=== PATIENT | female | born 1990 | race Caucasian/White ===

== ENCOUNTER → 2017-04-22 | Outpatient (CLI) | payer BC | END | disposition home or self-care (01) | LOC: C.PAPS 10:25 | PROVIDERS: ATTEND Obstetrics & Gynecology | DX: Z01.419 Encounter for gynecological examination (general) (routine) without abnormal findings (principal) ==

== ENCOUNTER → 2018-01-21 | Outpatient (CLI) | payer BC | END | disposition home or self-care (01) | LOC: C.LAB1850 12:21 | PROVIDERS: ATTEND Obstetrics & Gynecology | DX: O20.0 Threatened abortion (principal) ==

== ENCOUNTER → 2018-01-23 | Outpatient (CLI) | payer BC | END | disposition home or self-care (01) | LOC: C.LAB1850 11:40 | PROVIDERS: ATTEND Obstetrics & Gynecology | DX: O02.1 Missed abortion (principal) ==

== ENCOUNTER → 2018-01-29 | Outpatient (CLI) | payer BC | END | disposition home or self-care (01) | LOC: C.LAB1850 09:15 | PROVIDERS: ATTEND Obstetrics & Gynecology | DX: O03.9 Complete or unspecified spontaneous abortion without complication (principal) ==

== ENCOUNTER 2019-08-06 06:16 | Inpatient (IN) ==
[2019-08-06] MEDS ORDERED: OXYTOCIN 30 UNITS/500 ML BAG IV PRN ×2 (07:05→07:07)
[2019-08-06 07:29] LABS: Hematocrit (blood only) 33.8 % (37-47); Hemoglobin 11.5 g/dL (12.0-16.0); Mean Corpuscular Hemoglobin 31.3 pg (25-34); Mean Corpuscular Volume 92.1 fL (80-100); Mean Platelet Volume 10.1 fL (7.4-10.4); Platelet Count 210 K/uL (130-400); RDW Coefficient of Variation 13.7 % (11.5-14.5); RDW Standard Deviation 45.5 fL (36.4-46.3); Red Blood Count 3.67 M/uL (4.2-5.4); White Blood Count 9.19 K/uL (4.8-10.8)
--- NOTE | 2019-08-06 08:06 | History & Physical Report ---
Date of Service August 06, 2019 Assessment & Plan (1) Normal labor: IUP at 37 weeks with SPROM and no labor yet will ambulate for now but may need pitocin augmentation anticipate vaginal will notify peds of renal pelvis dilation in the but is now resolved. History of Present Illness Primary Care Provider: Tali Grande PA-C patient is a 29 yo white female EDC 08/27/19 who presents with SPROM of clear fluid at 0500 today. no contractions so far. GBS negative. was complicated by dilation of both renal pelvices which has resolved on the 36 week ultrasound. Allergies Allergy/AdvReac Type Severity Reaction Status Date / Time No Known Drug Allergies Allergy Verified 08/01/19 12:08 Home Medications Home Medications Medication Instructions Recorded Confirmed Type ferrous gluconate 240 mg (27 mg 240 mg PO DAILY tab 03/04/19 08/06/19 History iron) tablet vitamins with calcium 1 tab PO DAILY 03/04/19 08/06/19 History no.72-iron 29 mg-folic acid 1 mg tablet Patient History Social History (Updated 03/04/19 @ 14:55 by Nidia Henderson) Preferred Language: Kinyarwanda Communication Ability: Effective Visual Impairment: Partially Limited Hearing Ability: Normal Beliefs That Will Affect Care: None marital status: marital status details: Shen Huynh (28) [phone] Current Living Situation: Spouse Current Living Situation Comment: 2 cats- spouse changing cat litter. 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[place] [employer] Other Information That Helps Us Care for You: No Feels Safe at Home: Yes Safety Concerns: Feels Safe At This Time Smoking Status: Never smoker Hx Alcohol Use: No Hx Substance Use: No Childhood Exposure to Second-Hand Smoke: No Dental Care, Regularly: Yes Physical Activity Frequency: 3-4 Times per Week Physical Activity Frequency Comment: BEFORE Seatbelt Use: always Sunscreen Use: Yes Review of Systems All systems reviewed & are unremarkable except as noted in HPI & below Physical Exam Constitutional: WD/WN, vitals as above Respiratory: normal respiratory effort, lungs clear to auscultation Cardiovascular: RRR, no murmur, no edema Gastrointestinal (Abdomen): normal bowel sounds, soft, nontender, no hepatosplenomegaly Psychiatric: A+Ox3, euthymic affect Genitourinary: Manual OB Exam: + cervical dilation 1 cm, + cervical effacement 50%, + station -2 and + amniotic fluid clear OB Exam Monitor Tracing: + external FHT monitor used, + external uterine monitor used, + category I and + normal FHT variability Results & Data Vital Signs (Past 12 Hours) Vital Signs Temp Pulse Resp BP 08/06/19 06:58 99.0 F 96 H 18 125/82 08/06/19 06:35 112 H 135/68 08/06/19 06:28 98.8 F 18 Coding Level of Care Code None Diagnoses Normal labor O80; Z37.9
[2019-08-06] MEDS: LACTATED RINGER'S 1,000 ML IV PRN ×3 (11:09→20:40)
--- NOTE | 2019-08-06 14:57 | Anesthesiology Consultation ---
Date of Service August 06, 2019 Assessment & Plan (1) Encounter for pre-operative examination: Chart Review Chart Review: Patient NOT seen in Pre Admission Testing and Acceptable Risk for Labor Epidural Consults Requested none ASA ASA2 Proposed Anesthesia Anesthesia Type: Labor Epidural Risk / Benefits Reviewed With: PT / POA / Parent / Guardian, Accepts Plan and Informed Consent Obtained Additional Notes Consent obtained - patient will call when ready for epidural. History Height/Weight Height: 5 ft 3 in Weight: 70.307 kg Allergies Allergy/AdvReac Type Severity Reaction Status Date / Time No Known Drug Allergies Allergy Verified 08/01/19 12:08 Medications Home Medications Medication Instructions Recorded Confirmed Last Taken ferrous gluconate 240 mg (27 mg 240 mg PO DAILY tab 03/04/19 08/06/19 08/05/19 12:00 iron) tablet vitamins with calcium 1 tab PO DAILY 03/04/19 08/06/19 08/05/19 12:00 no.72-iron 29 mg-folic acid 1 mg tablet Active Medications Generic Name Dose Route Start Last Admin Trade Name Pramodq PRN Reason Stop Dose Admin Lactated Ringer's 1,000 mls @ 125 mls/hr 08/06/19 07:05 08/06/19 14:53 Lr IV 08/08/19 07:04 125 mls/hr .Q8H PRN Infusion L&D Protocol Protocol Oxytocin 30 units in 500 mls @ 14 mls/hr 08/06/19 07:07 08/06/19 14:53 Pitocin IV 08/08/19 07:06 0.84 units/hr .Q24H PRN 14 mls/hr Labor Induction/Augmentation Titration Protocol 0.84 UNITS/HR NPO Date Last Intake of Fluids: 08/06/19 Time Last Intake of Fluids: 14:54 Date Last Intake of Solids: 08/05/19 Time Last Intake of Solids: 18:15 Past Medical History Medical History History of miscarriage Varicella vaccine Exercise / Class Metabolic Activity II 4-5 Yardwork/Stairs/Walk up hill Negative for chest pain or shortness of breath. Patient denies active symptoms of GERD. Past Family History Family History Father Hypertension Hypercholesterolemia Aunt Breast cancer Unknown Delivery outcome of twins Past Surgical History Surgical History S/P wisdom tooth extraction Past Anesthesia History No Hx of Anesthesia Complications History of PONV No Hx of PONV Social History Smoking Status: Never smoker Hx Alcohol Use: No Hx Substance Use: No Review of Systems Patient denies history of abnormal bleeding or bleeding disorder. Patient denies active use of anticoagulants other than low dose aspirin. Patient denies numbness, tingling or weakness in lower extremities. Physical Exam Vital Signs Last Vital Signs Temp 37.3 C 08/06/19 14:26 Pulse 97 H 08/06/19 14:50 Resp 18 08/06/19 14:26 BP 124/82 08/06/19 14:50 Constitutional not obese (Gravid uterus) ENMT Mouth: no TMJ abnormality and oral opening not small Thyromental Distance: > or= 3.5 Finger Breadths Mallampati Class: I Neck normal visual inspection; neck extension not limited Respiratory normal respiratory effort Auscultation: lungs clear to auscultation bilaterally Cardiovascular Rate/Rhythm: regular rate and regular rhythm Heart Sounds: no murmur Neurologic moves all extremities Psychiatric Orientation: alert and oriented x 3 Testing Laboratory Results 08/06/19 07:10
[2019-08-06] MEDS ORDERED: BUPIVACAINE 0.25% 30 ML VIAL ONE (15:56)
[2019-08-06] MEDS ORDERED: fentaNYL citrate 100 MCG/2 ML VIAL ONE (15:56)
[2019-08-06] MEDS ORDERED: fentaNYL 2MCG/ML ROPIV 1.25MG/ML 100 ML BAG EPI ONE (15:56)
[2019-08-06] MEDS ORDERED: ePHEDrine sulfate 50 MG/ML AMP ONE (15:56)
[2019-08-06] MEDS ORDERED: NALOXONE HCL 0.4 MG/1 ML VIAL/CARP IV PRN (17:03)
[2019-08-06] MEDS ORDERED: fentaNYL 2MCG/ML ROPIV 1.25MG/ML 100 ML BAG EPI PRN (17:03)
[2019-08-06] MEDS ORDERED: ePHEDrine sulfate 50 MG/ML AMP IV PRN (17:03)
[2019-08-06] MEDS ORDERED: NALBUPHINE HCL INJ 10 MG/ML AMP IV PRN (17:03)
[2019-08-06] MEDS ORDERED: NALOXONE HCL 1 MG in SODIUM CHLORIDE 0.9% 1000ML 1,000 ML IV PRN (17:03)
[2019-08-06] MEDS ORDERED: DiphenhydrAMINE HCL 50 MG/ML VIAL IV PRN (17:03)
[2019-08-06] MEDS ORDERED: ONDANSETRON INJ 2 MG/ML 2 ML VIAL IV PRN (17:03)
[2019-08-07] MEDS ORDERED: ACETAMINOPHEN 325 MG TAB PO PRN (02:35)
[2019-08-07] MEDS ORDERED: OXYTOCIN 30 UNITS/500 ML BAG IV PRN (02:35)
[2019-08-07] MEDS ORDERED: DIPHTHERIA/TETANUS/PERTUSSIS 0.5 ML SYR/VIAL IM ONE (02:35)
[2019-08-07] MEDS ORDERED: bisacodyL 10 MG SUPP PR PRN (02:35)
[2019-08-07] MEDS ORDERED: SUPERCREAM 0.870% 15 GM JAR EXT PRN (02:35)
[2019-08-07] MEDS ORDERED: BENZOCAINE 20% AER SPR 82.5 GM CAN EXT PRN (02:35)
[2019-08-07] MEDS ORDERED: HYDROCORTISONE ACETATE 25 MG SUPP PR PRN (02:35)
[2019-08-07] MEDS: PRENATAL VITAMIN 1 TAB PO SCH (08:19)
[2019-08-07] MEDS: DOCUSATE SODIUM 100 MG CAP PO SCH ×2 (08:19→19:48)
[2019-08-07] MEDS: IBUPROFEN 600 MG TAB PO PRN ×3 (08:20→19:48)
--- NOTE | 2019-08-07 10:51 | Anesthesia Procedure Note ---
Date of Service August 07, 2019 Anesthesia Post Epidural Note Vital Signs Vital Signs: Temp Pulse Resp BP Pulse Ox 36.7 C 96 H 16 109/69 96 08/07/19 08:15 08/07/19 08:15 08/07/19 08:15 08/07/19 08:15 08/07/19 08:15 Pain Intensity Bilateral Lower Abdomen: Pain Intensity: 4 Notes Mental Status: alert / awake / arousable and participated in evaluation Nausea / Vomiting: adequately controlled Pain: adequately controlled Airway Patency, RR, SpO2: stable & adequate BP & HR: stable & adequate Hydration State: stable & adequate Neuraxial Anesthesia: was administered and sensory block is resolving Anesthetic Complications: no major complications apparent and Pt Satisfied with anesthetic care Epidural: Removed without complications and With tip intact Notes: Epidural site clean, dry and intact. No signs of edema, erythema or bruising at insertion site. Pt instructed to request anesthesia if she has residual lower extremity numbness or if she develops lower extremity pain or weakness, back pain or headache.
--- NOTE | 2019-08-07 20:36 | Delivery Summary ---
DATE OF OPERATION: 08/07/2019 PROCEDURE: Normal spontaneous vaginal delivery, second-degree laceration repair. SURGEON: Gaudencio Valadez MD PREOPERATIVE DIAGNOSES: 1. Early term . 2. premature rupture of the membranes. 3. dilated renal pelvises, resolved at 36-week scan. POSTOPERATIVE DIAGNOSES: 1. Early term . 2. premature rupture of the membranes. 3. dilated renal pelvises, resolved at 36-week scan. 4. Status post delivery. ESTIMATED BLOOD LOSS: 300 mL. DRAINS: None. FLUIDS: Continuous lactated ringer. URINE OUTPUT: Not measured. COMPLICATIONS: None. FINDINGS: Viable male with weight of 7 pounds 3 ounces and Apgars of 8 and 9 at 1 and 5 minutes respectively. DESCRIPTION OF PROCEDURE: The patient progressed to 10 cm dilated, 100% effaced, +2 station, pushed over intact perineum with epidural anesthesia and delivered a viable male infant, weight and Apgars as noted above. Head of the delivered in SAIGE position, rest to left transverse. Body and shoulders quickly followed. was noted to be vigorous upon delivery. A 1-minute delayed cord clamping was initiated, after which the cord was double clamped and cut. remained on maternal abdomen was noted to be vigorous. Cord blood was then obtained. Attention was then turned to deliver the placenta, which was delivered intact, 3-vessel cord, gentle cord traction. On inspection of the perineum, vagina, and cervix, there was noted to be second degree perineal laceration which was repaired with 3-0 Vicryl in the traditional crown stitch. Needle, sponge and instrument counts were correct at the completion of the case with mother and stable in immediate post-delivery. I attest to the content of the Intraoperative Record and any orders documented therein. Any exception s are noted below.
[2019-08-08] MEDS: IBUPROFEN 600 MG TAB PO PRN ×4 (03:43→23:41)
--- NOTE | 2019-08-08 05:57 | Obstetrical Progress Note ---
Date of Service <Jr Liriano MD - Last Filed: 08/08/19 06:34> August 08, 2019 Assessment & Plan <Jr Liriano MD - Last Filed: 08/08/19 06:34> (1) : PPD#1 - continue routine care - encourage ambulation, and oral intake - after discharge will have follow-up in 6 weeks Subjective <Jr Liriano MD - Last Filed: 08/08/19 06:34> Ms. Huynh is a 29 y/o female ; PPD #1 following spontaneous vaginal delivery; doing well this morning; having minimal abdominal cramping/pain; voiding well; tolerating meals overnight; and able to ambulate some; some persistent spotting with intermittent improvement this morning. Review of Systems Constitutional: denies fever; chills; sweats; headache Respiratory: denies shortness of breath, difficulty breathing Cardiac: denies chest pain; palpitations; chest pressure Breast: denies breast pain : denies dysuria Physical Exam <Jr Liriano MD - Last Filed: 08/08/19 06:34> General: alert; oriented; no acute distress Cardiac: RRR; no m/g/r Respiratory: CTAB a/p; no wheezes/rales/rhonchi; no increased work of breathing; symmetrical chest rise; no respiratory distress Abdomen: soft; NT/ND; bowel sounds positive Uterus: uterine fundus firm; palpable 2cm below umbilicus Lower extrem: no lower extremity edema or swelling; no deep calf pain; Leela's sign negative b/l Results & Data <Jr Liriano MD - Last Filed: 08/08/19 06:34> Vital Signs (Past 12 Hours) Vital Signs Temp Pulse Resp BP Pulse Ox 08/07/19 23:00 36.6 C 85 16 110/73 98 08/07/19 19:45 37.0 C 92 H 16 109/70 98 Laboratory Results 08/08/19 Range/Units 06:08 Hgb 10.1 L (12.0-16.0) g/dL Hct 29.6 L (37-47) % Medications Administered Current Inpatient Medications Acetaminophen (Tylenol) 650 mg PO Q6H PRN PRN Reason: Pain/CASTELLANOS/Fever Stop: 09/06/19 02:34 Benzocaine (Dermoplast Pain Relieving [place]) 1 appln EXT PRN PRN PRN Reason: Perineal Discomfort Stop: 09/06/19 02:34 Last Admin: 08/07/19 08:19 Dose: 82.5 appln Documented by: Bisacodyl (Dulcolax) 5 mg PO 1999 [facility] Stop: 08/08/19 20:01 Bisacodyl (Dulcolax) 10 mg [place] DAILY PRN PRN Reason: No BM on 2nd post- day Stop: 09/06/19 02:34 Cocaine HCl (Supercream 0.870%) 1 gm EXT BID PRN PRN Reason: Hemorrhoidal Inflammation Stop: 08/21/19 02:34 Docusate Sodium (Colace) 100 mg PO DAILY@08,21 [facility] Stop: 09/06/19 07:59 Last Admin: 08/07/19 19:48 Dose: 100 mg Documented by: Hydrocortisone (Anusol Hc) 25 mg [place] BID PRN PRN Reason: Hemorrhoidal Inflammation Stop: 09/06/19 02:34 Lactated Ringer's (Lr) 1,000 mls @ 125 mls/hr IV .Q8H PRN; Protocol PRN Reason: L&D Protocol Stop: 08/08/19 07:04 Last Infusion: 08/07/19 02:40 Dose: Infused Documented by: Oxytocin (Pitocin) 30 units in 500 mls @ 333.333 mls/hr IV .Q1H30M PRN; Protocol PRN Reason: Bleeding Control Stop: 09/05/19 07:04 Oxytocin (Pitocin) 30 units in 500 mls @ 333.333 mls/hr IV .Q1H30M PRN; Protocol PRN Reason: Bleeding Control Ibuprofen (Motrin) 600 mg PO Q4H PRN PRN Reason: Pain/CASTELLANOS/Cramping/Fever Stop: 09/06/19 02:34 Last Admin: 08/08/19 03:43 Dose: 600 mg Documented by: Prenat Multivit/[place]/Iron/Folic Ac ( Vitamin) 1 tab PO DAILY@08 [facility] Stop: 09/06/19 07:59 Last Admin: 08/07/19 08:19 Dose: 1 tab Documented by: <Gaudencio Valadez MD - Last Filed: 08/08/19 07:55> Co-Signing Physician Notes Patient seen and evaluated and agree with the above findings and plan. Routine care Resident Activity Tracking <Jr Liriano MD - Last Filed: 08/08/19 06:34> Resident Involvement: Resident Care Provided Care Provided: OB Delivery
[2019-08-08 06:19] LABS: Hematocrit (blood only) 29.6 % (37-47); Hemoglobin 10.1 g/dL (12.0-16.0)
[2019-08-08] MEDS: PRENATAL VITAMIN 1 TAB PO SCH (08:21)
[2019-08-08] MEDS: DOCUSATE SODIUM 100 MG CAP PO SCH ×2 (08:21→20:28)
[2019-08-08] MEDS ORDERED: bisacodyL 5 MG TABEC PO SCH (20:00)
--- NOTE | 2019-08-09 06:03 | Obstetrical Progress Note ---
Date of Service <Jr Liriano MD - Last Filed: 08/09/19 06:20> August 09, 2019 Assessment & Plan <Jr Liriano MD - Last Filed: 08/09/19 06:20> (1) : PPD#2 - continue routine care - encourage ambulation, and oral intake - after discharge will have follow-up in 6 weeks Subjective <Jr Liriano MD - Last Filed: 08/09/19 06:20> Ms. Huynh is a 29 y/o female ; PPD #2 following spontaneous vaginal delivery; doing well this morning; having minimal abdominal cramping/pain; voiding well; tolerating meals overnight; and able to ambulate some; some persistent spotting with intermittent improvement this morning. Review of Systems Constitutional: denies fever; chills; sweats; headache Respiratory: denies shortness of breath, difficulty breathing Cardiac: denies chest pain; palpitations; chest pressure Breast: denies breast pain : denies dysuria Physical Exam <Jr Liriano MD - Last Filed: 08/09/19 06:20> General: alert; oriented; no acute distress Cardiac: RRR; no m/g/r Respiratory: CTAB a/p; no wheezes/rales/rhonchi; no increased work of breathing; symmetrical chest rise; no respiratory distress Abdomen: soft; NT/ND; bowel sounds positive Uterus: uterine fundus firm; palpable 3cm below umbilicus Lower extrem: no lower extremity edema or swelling; no deep calf pain; Leela's sign negative b/l Results & Data <Jr Liriano MD - Last Filed: 08/09/19 06:20> Vital Signs (Past 12 Hours) Vital Signs Temp Pulse Resp BP 08/08/19 23:35 36.9 C 63 18 114/63 08/08/19 19:45 37.0 C 75 18 113/76 Laboratory Results 08/08/19 Range/Units 06:08 Hgb 10.1 L (12.0-16.0) g/dL Hct 29.6 L (37-47) % Medications Administered Current Inpatient Medications Acetaminophen (Tylenol) 650 mg PO Q6H PRN PRN Reason: Pain/CASTELLANOS/Fever Stop: 09/06/19 02:34 Benzocaine (Dermoplast Pain Relieving [place]) 1 appln EXT PRN PRN PRN Reason: Perineal Discomfort Stop: 09/06/19 02:34 Last Admin: 08/07/19 08:19 Dose: 82.5 appln Documented by: Bisacodyl (Dulcolax) 10 mg [place] DAILY PRN PRN Reason: No BM on 2nd post- day Stop: 09/06/19 02:34 Cocaine HCl (Supercream 0.870%) 1 gm EXT BID PRN PRN Reason: Hemorrhoidal Inflammation Stop: 08/21/19 02:34 Docusate Sodium (Colace) 100 mg PO DAILY@08,21 [facility] Stop: 09/06/19 07:59 Last Admin: 08/08/19 20:28 Dose: 100 mg Documented by: Hydrocortisone (Anusol Hc) 25 mg [place] BID PRN PRN Reason: Hemorrhoidal Inflammation Stop: 09/06/19 02:34 Oxytocin (Pitocin) 30 units in 500 mls @ 333.333 mls/hr IV .Q1H30M PRN; Protocol PRN Reason: Bleeding Control Stop: 09/05/19 07:04 Oxytocin (Pitocin) 30 units in 500 mls @ 333.333 mls/hr IV .Q1H30M PRN; Protocol PRN Reason: Bleeding Control Ibuprofen (Motrin) 600 mg PO Q4H PRN PRN Reason: Pain/CASTELLANOS/Cramping/Fever Stop: 09/06/19 02:34 Last Admin: 08/08/19 23:41 Dose: 600 mg Documented by: Prenat Multivit/[place]/Iron/Folic Ac ( Vitamin) 1 tab PO DAILY@08 [facility] Stop: 09/06/19 07:59 Last Admin: 08/08/19 08:21 Dose: 1 tab Documented by: <Diamond Garcia MD, FACOG - Last Filed: 08/09/19 07:27> Co-Signing Physician Notes Resident Physician Supervision Note: I interviewed and examined the patient. Discussed with Dr. Liriano and agree with findings and plan as documented in the note. Any exceptions or clarifications are listed here: [None] Documented By: Diamond Garcia MD, FACOG Resident Activity Tracking <Jr Liriano MD - Last Filed: 08/09/19 06:20> Resident Involvement: Resident Care Provided Care Provided: OB Delivery
[2019-08-09] MEDS: IBUPROFEN 600 MG TAB PO PRN (08:29)
[2019-08-09] MEDS: DOCUSATE SODIUM 100 MG CAP PO SCH (08:29)
[2019-08-09] MEDS: PRENATAL VITAMIN 1 TAB PO SCH (08:29)
== END 2019-08-09 11:55 | disposition home or self-care (01) | DRG 807 ==
LOC: OPB 06:16 → 4S1 06:23 → 4S2 08-07 05:15